=== PATIENT | male | born 1960 | race Caucasian/White ===

== ENCOUNTER 2018-10-24 21:17 | Emergency (ER) | payer OTHER ==
[~2018-10-24] VITALS: Ht 175.3 cm; Wt 113.4 kg
[~2018-10-24 21:17] MED LIST: ALTACE5 MG; ASA-EC81 MG PO; Altace 5 MG CAPSULE PO; DOSTINEX0.5 MG; FLAGYL500MG PO; MERREM IV; POLY119PG PO; POM (MEDICAMENTO EN PHA) PO; PROTONIX40 MG PO; Protonix PO; RAMIPRIL 2.5 MG PO; REGLAN5 MG/5 ML; Singulair 10MG PO; TAMS0.4C PO; VYTORIN 10/20 M1 TAB; ZANTAC150 M1; ZANTAC300 MG PO; ZEGERID 20 MG C1 CAP
[2018-10-25] MEDS ORDERED: OSEL75CA PO (04:51)
[2018-10-25] MEDS ORDERED: ZITHROMAX500 MG PO (04:51)
[2018-10-25] MEDS ORDERED: ZYNCOF 20-400120 ML PO (04:53)
[2018-10-25] MEDS ORDERED: ALBUTEROL2.5 MG/3 M IH (04:53)
== END 2018-10-25 06:54 | disposition home or self-care (01) ==
LOC: ER 21:17
DX: J11.1 Influenza due to unidentified influenza virus with other respiratory manifestations (principal); B96.0 Mycoplasma pneumoniae [M. pneumoniae] as the cause of diseases classified elsewhere

== ENCOUNTER 2018-11-17 20:04 | Emergency (ER) | payer OTHER ==
[~2018-11-17] VITALS: Ht 175.3 cm; Wt 109.8 kg
[~2018-11-17 20:04] MED LIST changes: +ALBUTEROL2.5 MG/3 M IH; +OSEL75CA PO; +ZITHROMAX500 MG PO; +ZYNCOF 20-400120 ML PO
[2018-11-17] MEDS ORDERED: IPRATROPIU0.2 MG/1 M (20:23)
[2018-11-17] MEDS ORDERED: METFORMIN HCL1000 M1 (20:24)
[2018-11-18] MEDS ORDERED: LEVALBUTER1.25 MG/3 IH (02:45)
== END 2018-11-18 02:55 | disposition home or self-care (01) ==
LOC: ER 20:04 → CPU-OBS 20:06 → ER 20:06
DX: R07.89 Other chest pain (principal)
CPT/HCPCS: G0378; G0379; 93005